=== PATIENT | male | born 1945 | race Two or more races ===

== ENCOUNTER 2018-07-10 20:24 | Emergency (ER) | payer MEDICARE, MEDICAID ==
[~2018-07-10] VITALS: Ht 182.9 cm; Wt 132.5 kg
[2018-07-10] MEDS ORDERED: HYDROCODONE/ACETAMINOPHEN 5/325MG TABLET PO ONE (21:15)
[2018-07-10 23:31] VITALS: BP 157/69
== END 2018-07-10 23:32 | disposition home or self-care (01) ==
LOC: ER 20:24
DX: M25.511 Pain in right shoulder (principal); E11.9 Type 2 diabetes mellitus without complications; I25.2 Old myocardial infarction; Z98.890 Other specified postprocedural states
CPT/HCPCS: 73030; 99283; A4565